=== PATIENT | female | born 1955 | race African-American/Black ===

== ENCOUNTER 2023-11-06 16:38 | Inpatient (IN) ==
[2023-11-06 18:28] LABS: Urine Appearance Clear; Urine Bilirubin Negative (Negative); Urine Blood Negative (Negative); Urine Color Light-Yellow; Urine Glucose Negative (Negative); Urine Ketones 1+ (Negative); Urine Nitrite Negative (Negative); Urine Protein Negative (Negative); Urine Specific Gravity 1.011 (1.002-1.030); Urine Urobilinogen Negative (Negative); Urine pH 6.5 (5.0-8.0)
[2023-11-06] MEDS: Morphine 4 MG/ML VIAL (1 ml) IV ONE (18:59)
[2023-11-06] MEDS: Ondansetron 4 mg VIAL 2 MG/ML 2 ml VIAL IV ONE (18:59)
[2023-11-06] MEDS: Lactated Ringers 1000 ml BAG 1,000 ML IV ONE (18:59)
[2023-11-06] MEDS: methylPREDNISolone SOD SUCC 40 mg/ml 1 ml VIAL IV ONE (22:29)
[2023-11-06] MEDS: Iodixanol (CONTRAST) 320 MG/ML 100 ML SDV IV ONE (23:28)
[2023-11-07] MEDS ORDERED: cefTRIAXone 1 gm/50 mL D5W 1 GM/50 ML BAG IV ONE (00:34)
[2023-11-07] MEDS ORDERED: Azithromycin 500 mg/250 ml NS 500 MG/250 ML BAG IVPB ONE (00:34)
[2023-11-07] MEDS: NS 0.9% 1000 ml BAG 1,000 ML IV SCH (02:00)
[2023-11-07] MEDS: cefTRIAXone 1 gm/50 mL D5W 1 GM/50 ML BAG IV SCH (02:05)
[2023-11-07] MEDS: Enoxaparin 40 MG/0.4 ML SYR SUBCUT SCH (02:12)
[2023-11-07] MEDS: Azithromycin 500 mg/250 ml NS 500 MG/250 ML BAG IVPB SCH (04:29)
[2023-11-07] MEDS ORDERED: Ondansetron 4 mg VIAL 2 MG/ML 2 ml VIAL IV PRN (05:06)
[2023-11-07 08:44] LABS: ABS Lymphocytes 0.8 10^3/uL (1.0-4.8); ABS Monocytes 0.3 10^3/uL (0.0-0.9); ABS Neutrophils 10.3 10^3/uL (1.5-7.6); Hematocrit 39.3 % (35-45); Hemoglobin 12.9 g/dL (11.5-14.3); Lymphocyte % 6.7 %; Mean Corpuscular Hemoglobin 29.3 pg (27-33); Mean Corpuscular Hgb Conc 32.9 g/dL (31-36); Mean Corpuscular Volume 89.3 fL (80-97); Mean Platelet Volume 8.6 fL (7.5-11.2); Platelet Count 192 10^3/uL (150-450); Red Cell Distribution Width 14.1 % (12-17); White Blood Count 11.4 10^3/uL (3.8-11.8)
[2023-11-07 09:14] LABS: Calcium 8.5 mg/dL (8.6-10.3); Creatinine, Serum 0.96 mg/dL (0.51-0.95); Potassium 3.7 mmol/L (3.5-5.0); eGFR CKD-EPI 65.3 (>60)
[2023-11-07] MEDS: Lactated Ringers 1000 ml BAG 1,000 ML IV SCH (11:19)
[2023-11-08 07:17] LABS: Calcium 8.2 mg/dL (8.6-10.3); Creatinine, Serum 1.27 mg/dL (0.51-0.95); Potassium 4.2 mmol/L (3.5-5.0); eGFR CKD-EPI 46.6 (>60)
[2023-11-08] MEDS: Lactated Ringers 1000 ml BAG 1,000 ML IV SCH (09:04)
[2023-11-08] MEDS: Morphine 2 MG/ML SYRINGE IV PRN (17:40)
[2023-11-09 07:00] LABS: Albumin 2.9 g/dL (3.2-5.2); Calcium 8.1 mg/dL (8.6-10.3); Creatinine, Serum 0.96 mg/dL (0.51-0.95); Globulin 2.9 g/dL (2-4); Magnesium 1.7 mg/dL (1.9-2.7); Potassium 4.2 mmol/L (3.5-5.0); Total Bilirubin 0.7 mg/dL (0.2-1.0); Total Protein 5.8 g/dL (6.4-8.9); eGFR CKD-EPI 65.3 (>60)
[2023-11-09] MEDS: Magnesium Sulfate 2 gm BAG 2 GM/50 ML BAG IVPB ONE (09:11)
[2023-11-09] MEDS ORDERED: Lidocaine PATCH 5% PATCH TRANSDERM SCH (10:00)
[2023-11-09] MEDS: Butalb/Acetamin/Caff TAB 325-50-40MG PO PRN (12:09)
[2023-11-10 07:03] LABS: Hematocrit 35.5 % (35-45); Mean Corpuscular Hemoglobin 29.9 pg (27-33); Mean Corpuscular Hgb Conc 33.8 g/dL (31-36); Mean Corpuscular Volume 88.2 fL (80-97); Mean Platelet Volume 8.8 fL (7.5-11.2); Platelet Count 207 10^3/uL (150-450); Red Blood Count 4.02 10^6/uL (3.63-4.92); Red Cell Distribution Width 14.5 % (12-17); White Blood Count 10.3 10^3/uL (3.8-11.8)
[2023-11-10 07:26] LABS: Calcium 8.2 mg/dL (8.6-10.3); Creatinine, Serum 0.96 mg/dL (0.51-0.95); Magnesium 1.8 mg/dL (1.9-2.7); Potassium 3.8 mmol/L (3.5-5.0); eGFR CKD-EPI 65.3 (>60)
[2023-11-11 06:25] LABS: ABS Basophils 0.1 10^3/uL (0.0-0.1); ABS Eosinophils 0.2 10^3/uL (0.0-0.5); ABS Lymphocytes 1.3 10^3/uL (1.0-4.8); ABS Monocytes 0.8 10^3/uL (0.0-0.9); ABS Neutrophils 6.3 10^3/uL (1.5-7.6); Eosinophil % 2.6 %; Hematocrit 34.8 % (35-45); Lymphocyte % 14.7 %; Mean Corpuscular Hemoglobin 30.4 pg (27-33); Mean Corpuscular Hgb Conc 34.5 g/dL (31-36); Mean Corpuscular Volume 88.3 fL (80-97); Mean Platelet Volume 8.5 fL (7.5-11.2); Platelet Count 217 10^3/uL (150-450); Red Blood Count 3.94 10^6/uL (3.63-4.92); Red Cell Distribution Width 14.1 % (12-17); White Blood Count 8.6 10^3/uL (3.8-11.8)
[2023-11-11 06:44] LABS: Calcium 8.5 mg/dL (8.6-10.3); Creatinine, Serum 0.98 mg/dL (0.51-0.95); Magnesium 1.9 mg/dL (1.9-2.7); eGFR CKD-EPI 63.7 (>60)
[2023-11-11 13:35] VITALS: BP 141/81
== END 2023-11-11 16:25 | disposition home or self-care (01) | DRG 189 ==
LOC: EDHOLD 16:38 → ED 16:38 → SUATTDRO 11-07 00:48 → MED 11-07 03:47
PROVIDERS: ADMIT Internal Medicine; ATTEND Internal Medicine